=== PATIENT | male | born 1990 | race African-American/Black ===

== ENCOUNTER 2019-09-14 19:11 | Emergency (ER) | payer MEDICAID ==
[~2019-09-14] VITALS: Ht 167.6 cm; Wt 66.0 kg
[2019-09-14 20:08] LABS: CHLORIDE 108 mEq/L (98-107)
[2019-09-14 20:12] LABS: BASOPHILS % 0.7 % (0.0-2.0); EOSINOPHILS % 0.4 % (0.0-5.0); HEMATOCRIT. 41.4 % (42.0-52.0); HEMOGLOBIN. 14.2 g/dL (14.0-18.0); LYMPHOCYTES % 40.5 % (20.0-50.0); MEAN CORPUSCULAR HEMOGLOBIN 31.9 pg (28.0-32.0); MEAN CORPUSCULAR VOLUME 93.2 fL (80.0-94.0); MEAN PLATELET VOLUME 8.1 fl (7.4-10.4); MONOCYTES % 9.9 % (2.0-8.0); NEUTROPHILS % 48.5 % (40.0-76.0); PLATELET 204 x1000/uL (130-400); RED BLOOD CELL COUNT 4.44 mill/uL (4.7-6.1); RED CELL DISTRIBUTION WIDTH 12.7 % (11.6-14.6)
[2019-09-14 20:13] LABS: ETHANOL BLOOD < 10 mg/dL
[2019-09-14 20:30] LABS: CLARITY URINE TURBID (CLEAR); COLOR URINE DARK YELLOW (YELLOW); KETONES URINE 1+ (NEGATIVE); LEUKOCYTE ESTERASE URINE TRACE (NEGATIVE); NITRITE URINE POSITIVE (NEGATIVE); OCCULT BLOOD URINE NEGATIVE (NEGATIVE); PROTEIN URINE 1+ (NEGATIVE); SPECIFIC GRAVITY URINE 1.041 (1.005-1.030)
[2019-09-14 21:12] LABS: *AMPHETAMINES SCREEN URINE NEGATIVE (NEGATIVE); *BARBITURATES SCREEN URINE NEGATIVE (NEGATIVE); *BENZODIAZEPINES SCREEN URINE NEGATIVE (NEGATIVE); *COCAINE SCREEN URINE NEGATIVE (NEGATIVE); METHADONE URINE SCREEN NEGATIVE (NEGATIVE)
[2019-09-14 21:13] LABS: CANNABINOID URINE SCREEN PRESUMTIVE POSITIVE (NEGATIVE); OPIATES URINE SCREEN NEGATIVE (NEGATIVE); PHENCYCLIDINE URINE SCREEN NEGATIVE (NEGATIVE)
[2019-09-14 22:20] VITALS: BP 124/80
== END 2019-09-14 22:30 | disposition home or self-care (01) ==
LOC: ER 19:11
DX: R46.2 Strange and inexplicable behavior (principal)
CPT/HCPCS: 36415; 80053; 80305; 80320; 81003; 82962; 85025; 99283; G0480

== ENCOUNTER 2022-11-12 13:57 | Emergency (ER) | payer MEDICAID ==
[~2022-11-12] VITALS: Ht 180.3 cm; Wt 83.0 kg
[2022-11-12 14:12] VITALS: BP 122/79; O2SAT 98
[2022-11-12] MEDS ORDERED: FLUORESCEIN SODIUM 1MG/STRIP BOTHEYE ONE (14:30)
[2022-11-12] MEDS ORDERED: TETRACAINE 0.5% OPHTH DROPS 4ML BOTHEYE ONE (14:30)
[2022-11-12] MEDS ORDERED: PIPERACILLIN/TAZ 3.375G PREMIX 50 ML IV ONE (14:45)
[2022-11-12] MEDS ORDERED: VANCOMYCIN 1G PREMIX 200 ML IV ONE (14:45)
[2022-11-12 15:32] LABS: HEMOGLOBIN. 13.8 g/dL (14.0-18.0); MEAN CORPUSCULAR HGB CONC 34.5 g/dL (31.0-37.0); MEAN CORPUSCULAR VOLUME 89.9 fL (80.0-94.0); MEAN PLATELET VOLUME 7.8 fl (7.4-10.4); PLATELET 188 x1000/uL (130-400); RED BLOOD CELL COUNT 4.45 mill/uL (4.7-6.1); RED CELL DISTRIBUTION WIDTH 12.8 % (11.6-14.6); WHITE BLOOD COUNT 4.9 x1000/uL (4.5-11.0)
[2022-11-12 15:37] LABS: DIFFERENTIAL COMMENT 1
[2022-11-12 15:46] LABS: CHLORIDE 109 mEq/L (98-107); INDEX HEMOLYSI 1 (1-3); INDEX ICTERIC 1 (1-4); INDEX LIPEMIC 1 (1-3); POTASSIUM 3.3 mEq/L (3.5-5.1); SODIUM 136 mEq/L (136-145)
[2022-11-12 15:53] LABS: ALANINE AMINOTRANSFERASE 50 IU/L (13-61); ALBUMIN 4.1 g/dL (3.4-5.0); ASPARTATE AMINOTRANSFERASE 44 IU/L (15-37); BILIRUBIN TOTAL 0.7 mg/dL (0.1-1.0); CALCIUM 8.8 mg/dL (8.5-10.1); CARBON DIOXIDE 24 mEq/L (21-32); CREATININE 0.9 mg/dL (0.6-1.3); GLUCOSE 140 mg/dL (70-105); PROTEIN TOTAL 8.5 g/dL (6.0-8.3); UREA NITROGEN BLOOD 9 mg/dL (7-21)
[2022-11-12 17:50] LABS: PLATELET ESTIMATE NORMAL
[2022-11-12] MEDS ORDERED: SULF1TAB48 MT (18:52)
[2022-11-12] MEDS ORDERED: AMOX125S12 MT (18:52)
[2022-11-12] MEDS ORDERED: CIPR5DRO EACHEYE (18:57)
[2022-11-12] MEDS ORDERED: SULFAMETHOXAZOLE/TRIMETHOPRIM 800/160MG TABLET PO ONE (19:30)
[2022-11-12] MEDS ORDERED: AMOXICILLIN 125 MG/5 ML 100 ML BOTTLE PO ONE (19:30)
[2022-11-12 19:56] VITALS: PULSE 92; RESP 20; TEMP 98.2
[2022-11-12] MEDS ORDERED: AMOXICILLIN 250MG/5ML ORAL SYRINGE PO NR (20:00)
[2022-11-12] MEDS ORDERED: IOHEXOL-300 100 ML BOTTLE ONE (20:19)
== END 2022-11-12 20:05 | disposition home or self-care (01) ==
LOC: ER 14:42
DX: L03.213 Periorbital cellulitis (principal); H10.9 Unspecified conjunctivitis; F12.10 Cannabis abuse, uncomplicated
CPT/HCPCS: 99285; 70487; 80053; 85025; 36415; Q9967; J2543; J3370